=== PATIENT | male | born 1965 | race Caucasian/White ===

== ENCOUNTER 2018-04-14 11:25 | Emergency (ER) | payer MEDICAID, OTHER ==
[~2018-04-14] VITALS: Ht 175.3 cm; Wt 64.0 kg
[~2018-04-14 11:25] MED LIST: CITA20TA75; NICO1PAT15; PANT40TA4; QUET100T; RANI25TA
[2018-04-14 15:11] LABS: CHLORIDE 103 mEq/L (98-107)
[2018-04-14 15:15] LABS: BASOPHILS % 0.6 % (0.0-2.0); EOSINOPHILS % 3.9 % (0.0-5.0); HEMATOCRIT. 39.4 % (42.0-52.0); HEMOGLOBIN. 13.7 g/dL (14.0-18.0); LYMPHOCYTES % 29.5 % (20.0-50.0); MEAN CORPUSCULAR HEMOGLOBIN 32.3 pg (28.0-32.0); MEAN CORPUSCULAR VOLUME 92.8 fL (80.0-94.0); MEAN PLATELET VOLUME 7.6 fl (7.4-10.4); MONOCYTES % 9.6 % (2.0-8.0); NEUTROPHILS % 56.4 % (40.0-76.0); PLATELET 285 x1000/uL (130-400); RED BLOOD CELL COUNT 4.24 mill/uL (4.7-6.1); RED CELL DISTRIBUTION WIDTH 13.7 % (11.6-14.6)
[2018-04-14 15:16] LABS: ETHANOL BLOOD < 10 mg/dL
[2018-04-14 17:17] LABS: CLARITY URINE CLEAR (CLEAR); COLOR URINE YELLOW (YELLOW); KETONES URINE TRACE (NEGATIVE); LEUKOCYTE ESTERASE URINE NEGATIVE (NEGATIVE); NITRITE URINE NEGATIVE (NEGATIVE); OCCULT BLOOD URINE TRACE (NEGATIVE); PH URINE 5.5 (4.5-8.0); PROTEIN URINE NEGATIVE (NEGATIVE); SPECIFIC GRAVITY URINE 1.032 (1.005-1.030); UROBILINOGEN URINE 0.2 E.U./dL (0.2-1.0)
[2018-04-14 17:29] LABS: *AMPHETAMINES SCREEN URINE PRESUMTIVE POSITIVE (NEGATIVE); *BARBITURATES SCREEN URINE NEGATIVE (NEGATIVE); *BENZODIAZEPINES SCREEN URINE NEGATIVE (NEGATIVE); *COCAINE SCREEN URINE NEGATIVE (NEGATIVE); METHADONE URINE SCREEN NEGATIVE (NEGATIVE)
[2018-04-14 17:32] LABS: CANNABINOID URINE SCREEN NEGATIVE (NEGATIVE); OPIATES URINE SCREEN NEGATIVE (NEGATIVE); PHENCYCLIDINE URINE SCREEN NEGATIVE (NEGATIVE)
[2018-04-15 09:20] VITALS: BP 120/67
== END 2018-04-15 09:24 | disposition home or self-care (01) ==
LOC: ER 11:25
DX: R45.851 Suicidal ideations (principal); F20.9 Schizophrenia, unspecified; F15.10 Other stimulant abuse, uncomplicated; R94.5 Abnormal results of liver function studies
CPT/HCPCS: 36415; 80053; 80305; 80307; 80329; 81003; 85025; 99284; G0482

== ENCOUNTER 2018-06-14 11:53 | Inpatient (IN) | payer OTHER ==
[~2018-06-14] VITALS: Ht 175.3 cm; Wt 60.8 kg
[2018-06-14] MEDS ORDERED: SODIUM CHLORIDE 0.9% 1000ML BAG (SEPSIS BOLUS) IV ONE (14:30)
[2018-06-14] MEDS ORDERED: ACYCLOVIR INJ 500 MG in DEXT 5% WATER 100 ML IV STA (14:36)
[2018-06-14] MEDS ORDERED: LORAZEPAM 2MG/ML CPJ IV ONE (14:45)
[2018-06-14 16:11] LABS: BASOPHILS % 0.4 % (0.0-2.0); EOSINOPHILS % 3.5 % (0.0-5.0); HEMATOCRIT. 37.9 % (42.0-52.0); HEMOGLOBIN. 12.9 g/dL (14.0-18.0); MEAN CORPUSCULAR HEMOGLOBIN 31.3 pg (28.0-32.0); MEAN CORPUSCULAR VOLUME 92.2 fL (80.0-94.0); NEUTROPHILS % 69.1 % (40.0-76.0); PLATELET 224 x1000/uL (130-400); RED BLOOD CELL COUNT 4.11 mill/uL (4.7-6.1); RED CELL DISTRIBUTION WIDTH 13.2 % (11.6-14.6)
[2018-06-14 16:12] LABS: CHLORIDE 104 mEq/L (98-107)
[2018-06-14 16:17] LABS: INR 0.9; PROTHROMBIN TIME 9.5 sec (9.1-11.1)
[2018-06-14 18:10] LABS: CLARITY URINE CLEAR (CLEAR); COLOR URINE YELLOW (YELLOW); KETONES URINE NEGATIVE (NEGATIVE); LEUKOCYTE ESTERASE URINE NEGATIVE (NEGATIVE); NITRITE URINE NEGATIVE (NEGATIVE); OCCULT BLOOD URINE 2+ (NEGATIVE); PH URINE 5.5 (4.5-8.0); PROTEIN URINE NEGATIVE (NEGATIVE); SPECIFIC GRAVITY URINE 1.011 (1.005-1.030)
[2018-06-14 18:42] LABS: *AMPHETAMINES SCREEN URINE PRESUMTIVE POSITIVE (NEGATIVE); *BARBITURATES SCREEN URINE NEGATIVE (NEGATIVE); *BENZODIAZEPINES SCREEN URINE NEGATIVE (NEGATIVE); *COCAINE SCREEN URINE NEGATIVE (NEGATIVE); CANNABINOID URINE SCREEN NEGATIVE (NEGATIVE); METHADONE URINE SCREEN NEGATIVE (NEGATIVE); OPIATES URINE SCREEN NEGATIVE (NEGATIVE); PHENCYCLIDINE URINE SCREEN NEGATIVE (NEGATIVE)
[2018-06-14] MEDS ORDERED: HYDROCODONE/ACETAMINOPHEN 5/325MG TABLET PO PRN (19:45)
[2018-06-14] MEDS ORDERED: DOCUSATE SODIUM 100MG CAPSULE PO PRN (19:45)
[2018-06-14] MEDS ORDERED: ONDANSETRON HCL 4MG/2ML INJ IV PRN (19:45)
[2018-06-14] MEDS ORDERED: IPRATROPIUM/ALBUTEROL 0.5-3(2.5)MG/3ML NEB INH PRN (19:45)
[2018-06-14] MEDS ORDERED: MAGNESIUM/ALUMINUM HYDROXIDE/SIMETHICONE 30ML UDC PO PRN (19:45)
[2018-06-14] MEDS ORDERED: CLONIDINE 0.1MG TABLET PO PRN (19:45)
[2018-06-14] MEDS ORDERED: ACETAMINOPHEN 325MG TABLET PO PRN (19:45)
[2018-06-14] MEDS: ENOXAPARIN 40MG/0.4ML SYR SUBCUT SCH (20:47)
[2018-06-14] MEDS ORDERED: LORAZEPAM 0.5MG TABLET PO PRN (21:00)
[2018-06-14 23:55] LABS: CREATINE KINASE 898 IU/L (39-308)
[2018-06-14 23:57] LABS: CREATINE KINASE MB FRACTION 8.3 ng/mL (0.5-3.6)
[2018-06-15] MEDS ORDERED: ACYCLOVIR INJ 500 MG in DEXT 5% WATER 100 ML IV SCH (02:30)
[2018-06-15] MEDS ORDERED: LORAZEPAM 2MG/ML CPJ IV ONE (02:45)
[2018-06-15] MEDS ORDERED: HALOPERIDOL LACTATE 5MG/ML VIAL IM ONE (03:00)
[2018-06-15] MEDS ORDERED: DIPHENHYDRAMINE 50MG/ML VIAL IV ONE (03:00)
[2018-06-15] MEDS: ENOXAPARIN 40MG/0.4ML SYR SUBCUT SCH (21:30)
[2018-06-15] MEDS: ACYCLOVIR INJ 500 MG in DEXT 5% WATER 100 ML IV SCH (23:31)
[2018-06-15 23:47] LABS: BASOPHILS % 0.5 % (0.0-2.0); EOSINOPHILS % 2.5 % (0.0-5.0); HEMATOCRIT. 38.7 % (42.0-52.0); HEMOGLOBIN. 13.2 g/dL (14.0-18.0); LYMPHOCYTES % 19.3 % (20.0-50.0); MEAN CORPUSCULAR HEMOGLOBIN 31.5 pg (28.0-32.0); MEAN CORPUSCULAR VOLUME 92.5 fL (80.0-94.0); MEAN PLATELET VOLUME 7.5 fl (7.4-10.4); MONOCYTES % 8.9 % (2.0-8.0); NEUTROPHILS % 68.8 % (40.0-76.0); PLATELET 231 x1000/uL (130-400); RED BLOOD CELL COUNT 4.18 mill/uL (4.7-6.1); RED CELL DISTRIBUTION WIDTH 13.6 % (11.6-14.6)
[2018-06-15 23:56] LABS: CHLORIDE 108 mEq/L (98-107)
[2018-06-16 00:08] LABS: LDL CHOLESTEROL 54 mg/dL (5-100)
[2018-06-16 00:09] LABS: CREATINE KINASE 296 IU/L (39-308)
[2018-06-16 00:10] LABS: HDL CHOLESTEROL 54 mg/dL (40-59)
[2018-06-16 00:14] LABS: CREATINE KINASE MB FRACTION 2.4 ng/mL (0.5-3.6)
[2018-06-16] MEDS: ACYCLOVIR INJ 500 MG in DEXT 5% WATER 100 ML IV SCH ×3 (06:38→22:37)
[2018-06-16] MEDS: ENOXAPARIN 40MG/0.4ML SYR SUBCUT SCH (21:59)
[2018-06-17] MEDS: ACYCLOVIR INJ 500 MG in DEXT 5% WATER 100 ML IV SCH ×2 (06:51→16:29)
[2018-06-17] MEDS ORDERED: CEFTRIAXONE 1 G PREMIX 50 ML IV SCH (09:00)
[2018-06-17 09:06] LABS: HIV SCREEN 4G Non Reactive (Non Reactive)
[2018-06-17 12:00] VITALS: BP 127/86
[2018-06-17 13:32] VITALS: BP 127/86
[2018-06-17] MEDS ORDERED: ACYCLOVIR INJ 500 MG in DEXT 5% WATER 100 ML IV SCH (15:00)
[2018-06-17 16:00] VITALS: BP 110/77
[2018-06-17] MEDS: PANTOPRAZOLE 40MG DR TABLET PO SCH (19:51)
[2018-06-17] MEDS: FOLIC ACID 1MG TABLET PO SCH (19:51)
[2018-06-17] MEDS: THIAMINE HCL 100MG TABLET PO SCH (19:51)
[2018-06-17 20:00] VITALS: BP 103/76
[2018-06-17] MEDS ORDERED: QUETIAPINE FUMARATE 100MG TABLET PO NR (20:15)
[2018-06-17] MEDS ORDERED: QUETIAPINE FUMARATE 100MG TABLET PO SCH (21:00)
[2018-06-17] MEDS: CITALOPRAM HYDROBROMIDE 20MG TABLET PO SCH (21:29)
[2018-06-17] MEDS: ENOXAPARIN 40MG/0.4ML SYR SUBCUT SCH (21:31)
[2018-06-18] VITALS: BP 110/71
[2018-06-18] MEDS: ACYCLOVIR INJ 500 MG in DEXT 5% WATER 100 ML IV SCH ×4 (00:48→23:51)
[2018-06-18 04:00] VITALS: BP 109/69
[2018-06-18 06:33] LABS: BASOPHILS % 0.6 % (0.0-2.0); EOSINOPHILS % 4.2 % (0.0-5.0); HEMATOCRIT. 42.2 % (42.0-52.0); HEMOGLOBIN. 14.2 g/dL (14.0-18.0); LYMPHOCYTES % 28.6 % (20.0-50.0); MEAN CORPUSCULAR HEMOGLOBIN 31.3 pg (28.0-32.0); MEAN PLATELET VOLUME 7.3 fl (7.4-10.4); MONOCYTES % 11.3 % (2.0-8.0); NEUTROPHILS % 55.3 % (40.0-76.0); PLATELET 300 x1000/uL (130-400); RED BLOOD CELL COUNT 4.53 mill/uL (4.7-6.1); RED CELL DISTRIBUTION WIDTH 13.7 % (11.6-14.6)
[2018-06-18 06:45] LABS: CHLORIDE 108 mEq/L (98-107)
[2018-06-18 08:00] VITALS: BP 126/83
[2018-06-18] MEDS: PANTOPRAZOLE 40MG DR TABLET PO SCH (08:09)
[2018-06-18] MEDS ORDERED: CEFTRIAXONE 1 G PREMIX 50 ML IV SCH (09:00)
[2018-06-18 12:00] VITALS: BP 107/68
[2018-06-18] MEDS: CITALOPRAM HYDROBROMIDE 20MG TABLET PO SCH (12:21)
[2018-06-18] MEDS: FOLIC ACID 1MG TABLET PO SCH (12:21)
[2018-06-18] MEDS: CEFAZOLIN 1000MG PREMIX 50 ML IV SCH ×2 (12:21→16:30)
[2018-06-18] MEDS: THIAMINE HCL 100MG TABLET PO SCH (12:21)
[2018-06-18 16:00] VITALS: BP 114/75
[2018-06-18 21:00] VITALS: BP 103/71
[2018-06-18] MEDS: QUETIAPINE FUMARATE 100MG TABLET PO SCH (23:51)
[2018-06-18] MEDS: ENOXAPARIN 40MG/0.4ML SYR SUBCUT SCH (23:53)
[2018-06-19] VITALS: BP 101/61
[2018-06-19] MEDS: CEFAZOLIN 1000MG PREMIX 50 ML IV SCH ×3 (00:02→23:10)
[2018-06-19 04:16] LABS: *HSV 1 DNA PCR Negative (Negative); *HSV 2 DNA PCR Negative (Negative); HSV 1 & 2 AB IGM <0.91 Ratio (0.00-0.90)
[2018-06-19 05:00] VITALS: BP 101/64
[2018-06-19] MEDS: PANTOPRAZOLE 40MG DR TABLET PO SCH ×2 (06:43→08:42)
[2018-06-19 06:59] LABS: BASOPHILS % 0.8 % (0.0-2.0); EOSINOPHILS % 4.5 % (0.0-5.0); HEMATOCRIT. 41.8 % (42.0-52.0); HEMOGLOBIN. 13.9 g/dL (14.0-18.0); LYMPHOCYTES % 37.5 % (20.0-50.0); MEAN CORPUSCULAR HEMOGLOBIN 31.1 pg (28.0-32.0); MEAN CORPUSCULAR VOLUME 93.7 fL (80.0-94.0); MEAN PLATELET VOLUME 7.4 fl (7.4-10.4); NEUTROPHILS % 47.2 % (40.0-76.0); PLATELET 323 x1000/uL (130-400); RED BLOOD CELL COUNT 4.46 mill/uL (4.7-6.1); RED CELL DISTRIBUTION WIDTH 14.2 % (11.6-14.6)
[2018-06-19 07:21] LABS: CHLORIDE 105 mEq/L (98-107)
[2018-06-19 07:32] LABS: CREATINE KINASE 53 IU/L (39-308)
[2018-06-19 08:00] VITALS: BP 93/55
[2018-06-19] MEDS: THIAMINE HCL 100MG TABLET PO SCH (08:42)
[2018-06-19] MEDS: CITALOPRAM HYDROBROMIDE 20MG TABLET PO SCH (08:42)
[2018-06-19] MEDS: FOLIC ACID 1MG TABLET PO SCH (08:42)
[2018-06-19] MEDS: ACYCLOVIR INJ 500 MG in DEXT 5% WATER 100 ML IV SCH ×2 (08:43→17:23)
[2018-06-19 10:08] LABS: HIV SCREEN 4G Non Reactive (Non Reactive)
[2018-06-19 16:00] VITALS: BP 108/69
[2018-06-19 20:00] VITALS: BP 100/63
[2018-06-19] MEDS: QUETIAPINE FUMARATE 100MG TABLET PO SCH (23:10)
[2018-06-19] MEDS: ENOXAPARIN 40MG/0.4ML SYR SUBCUT SCH (23:11)
[2018-06-20] VITALS: BP 102/62
[2018-06-20] MEDS: CEFAZOLIN 1000MG PREMIX 50 ML IV SCH (05:24)
[2018-06-20 08:00] VITALS: BP 105/69
[2018-06-20] MEDS: THIAMINE HCL 100MG TABLET PO SCH (09:00)
[2018-06-20] MEDS: CITALOPRAM HYDROBROMIDE 20MG TABLET PO SCH (09:00)
[2018-06-20] MEDS: FOLIC ACID 1MG TABLET PO SCH (09:00)
[2018-06-20] MEDS ORDERED: FAMOTIDINE 20MG TABLET PO SCH (09:00)
[2018-06-20 12:00] VITALS: BP 98/61
== END 2018-06-20 12:40 | disposition left against medical advice (07) | DRG 720 ==
LOC: ER 12:02 → EDBEDREQSVC 17:20 → EDBEDREQ 17:20 → ENRESERV 17:28 → CANRESERV 17:28 → 6EST 06-16 17:15 → ENRESERV 06-17 09:55 → CANRESERV 06-17 09:55
PROVIDERS: ADMIT Internal Medicine; ATTEND Internal Medicine
DX: B00.7 Disseminated herpesviral disease (principal); R45.851 Suicidal ideations; F20.9 Schizophrenia, unspecified; D72.829 Elevated white blood cell count, unspecified; F10.20 Alcohol dependence, uncomplicated; N39.0 Urinary tract infection, site not specified; F15.90 Other stimulant use, unspecified, uncomplicated; F19.10 Other psychoactive substance abuse, uncomplicated; B96.20 Unspecified Escherichia coli [E. coli] as the cause of diseases classified elsewhere; F31.9 Bipolar disorder, unspecified; Z53.21 Procedure and treatment not carried out due to patient leaving prior to being seen by health care provider; Z59.0 Homelessness; Z79.899 Other long term (current) drug therapy; Z86.73 Personal history of transient ischemic attack (TIA), and cerebral infarction without residual deficits
CPT/HCPCS: 36415; 71045; 80048; 80061; 80305; 82550; 82553; 83605; 83735; 84145; 84443; 84484; 86592; 86694; 86695; 87077; 87186; 87389; 87529; 93005; 93970; 96361; 96365; 96366; 96372; 96375; 96376; 97162; 99285; J0133; J0690; J0696; J1200; J1630; J1650; J2060; J7030; J7040; J7060

== ENCOUNTER 2018-06-24 16:29 | Emergency (ER) | payer MEDICAID, OTHER ==
[~2018-06-24] VITALS: Ht 182.9 cm; Wt 70.0 kg
[2018-06-24] MEDS ORDERED: ACETAMINOPHEN 325MG TABLET PO ONE (21:15)
[2018-06-24] MEDS ORDERED: DIAZEPAM 2 MG TABLET PO ONE (22:30)
[2018-06-24] MEDS ORDERED: KETOROLAC 60MG/2ML VIAL IM ONE (22:30)
[2018-06-25] MEDS ORDERED: HYDROCODONE/ACETAMINOPHEN 10/325MG TABLET PO ONE (02:45)
[2018-06-25] MEDS ORDERED: LORAZEPAM 2MG/ML CPJ IM STA (07:48)
[2018-06-25 08:22] LABS: BASOPHILS % 0.4 % (0.0-2.0); EOSINOPHILS % 2.8 % (0.0-5.0); HEMATOCRIT. 38.1 % (42.0-52.0); HEMOGLOBIN. 12.9 g/dL (14.0-18.0); LYMPHOCYTES % 28.5 % (20.0-50.0); MEAN CORPUSCULAR HEMOGLOBIN 31.5 pg (28.0-32.0); MEAN CORPUSCULAR VOLUME 93.2 fL (80.0-94.0); MEAN PLATELET VOLUME 6.7 fl (7.4-10.4); NEUTROPHILS % 57.3 % (40.0-76.0); PLATELET 405 x1000/uL (130-400); RED BLOOD CELL COUNT 4.08 mill/uL (4.7-6.1); RED CELL DISTRIBUTION WIDTH 13.6 % (11.6-14.6)
[2018-06-25 08:29] LABS: CHLORIDE 103 mEq/L (98-107)
[2018-06-25 08:33] LABS: ETHANOL BLOOD < 10 mg/dL
[2018-06-25 08:38] LABS: CREATINE KINASE 709 IU/L (39-308)
[2018-06-25] MEDS ORDERED: SODIUM CHLORIDE 0.9% 1,000 ML IV ONE (08:47)
[2018-06-25 12:00] VITALS: BP 101/63
== END 2018-06-25 12:42 | disposition short-term general hospital (02) ==
LOC: ER 16:29 → EDBEDREQ 06-25 09:30 → ER 06-25 12:42 → CANBEDREQ 06-25 20:45
DX: M79.604 Pain in right leg (principal); F20.9 Schizophrenia, unspecified; F15.10 Other stimulant abuse, uncomplicated; Z59.0 Homelessness; Z86.73 Personal history of transient ischemic attack (TIA), and cerebral infarction without residual deficits
CPT/HCPCS: 36415; 70450; 73502; 73590; 80053; 80307; 80329; 82140; 82550; 85025; 93971; 96372; 99285; G0482; J1885; J2060; J7030

== ENCOUNTER 2018-07-12 09:36 | Emergency (ER) | payer OTHER ==
[~2018-07-12] VITALS: Ht 175.3 cm; Wt 71.0 kg
[2018-07-12 15:13] LABS: CLARITY URINE CLOUDY (CLEAR); COLOR URINE DARK YELLOW (YELLOW); KETONES URINE TRACE (NEGATIVE); LEUKOCYTE ESTERASE URINE NEGATIVE (NEGATIVE); NITRITE URINE NEGATIVE (NEGATIVE); OCCULT BLOOD URINE 2+ (NEGATIVE); PH URINE 5.5 (4.5-8.0); PROTEIN URINE NEGATIVE (NEGATIVE)
[2018-07-12 15:30] LABS: *AMPHETAMINES SCREEN URINE PRESUMTIVE POSITIVE (NEGATIVE); *BARBITURATES SCREEN URINE NEGATIVE (NEGATIVE); *BENZODIAZEPINES SCREEN URINE NEGATIVE (NEGATIVE); *COCAINE SCREEN URINE NEGATIVE (NEGATIVE); BASOPHILS % 0.2 % (0.0-2.0); EOSINOPHILS % 4.5 % (0.0-5.0); HEMATOCRIT. 38.3 % (42.0-52.0); HEMOGLOBIN. 12.8 g/dL (14.0-18.0); LYMPHOCYTES % 32.7 % (20.0-50.0); MEAN CORPUSCULAR HEMOGLOBIN 31.8 pg (28.0-32.0); MEAN CORPUSCULAR VOLUME 94.9 fL (80.0-94.0); MEAN PLATELET VOLUME 7.8 fl (7.4-10.4); METHADONE URINE SCREEN NEGATIVE (NEGATIVE); NEUTROPHILS % 52.6 % (40.0-76.0); OPIATES URINE SCREEN NEGATIVE (NEGATIVE); PLATELET 212 x1000/uL (130-400); RED BLOOD CELL COUNT 4.04 mill/uL (4.7-6.1); RED CELL DISTRIBUTION WIDTH 14.5 % (11.6-14.6)
[2018-07-12 15:31] LABS: CANNABINOID URINE SCREEN NEGATIVE (NEGATIVE); PHENCYCLIDINE URINE SCREEN NEGATIVE (NEGATIVE)
[2018-07-12 15:34] LABS: CHLORIDE 107 mEq/L (98-107)
[2018-07-12 15:39] LABS: ETHANOL BLOOD < 10 mg/dL
[2018-07-12] MEDS ORDERED: ACETAMINOPHEN 325MG TABLET PO ONE (16:00)
[2018-07-13 11:49] VITALS: BP 132/72
== END 2018-07-13 12:00 | disposition home or self-care (01) ==
LOC: ER 09:36
DX: R45.851 Suicidal ideations (principal); F31.9 Bipolar disorder, unspecified; F20.9 Schizophrenia, unspecified; M79.643 Pain in unspecified hand; M79.673 Pain in unspecified foot; F10.10 Alcohol abuse, uncomplicated; F15.10 Other stimulant abuse, uncomplicated; F17.200 Nicotine dependence, unspecified, uncomplicated; Z86.73 Personal history of transient ischemic attack (TIA), and cerebral infarction without residual deficits; Z79.899 Other long term (current) drug therapy; Z59.0 Homelessness; Y90.0 Blood alcohol level of less than 20 mg/100 ml
CPT/HCPCS: 36415; 80305; 99284

== ENCOUNTER 2018-07-30 10:58 | Emergency (ER) | payer MEDICAID, OTHER ==
[~2018-07-30] VITALS: Ht 177.8 cm; Wt 80.0 kg
[2018-07-30] MEDS ORDERED: IBUPROFEN 600MG TABLET PO STA ×2 (11:25→17:09)
[2018-07-30 12:12] LABS: BASOPHILS % 0.9 % (0.0-2.0); EOSINOPHILS % 6.6 % (0.0-5.0); HEMATOCRIT. 36.8 % (42.0-52.0); HEMOGLOBIN. 12.6 g/dL (14.0-18.0); LYMPHOCYTES % 30.2 % (20.0-50.0); MEAN CORPUSCULAR HEMOGLOBIN 32.3 pg (28.0-32.0); MEAN CORPUSCULAR VOLUME 94.3 fL (80.0-94.0); MEAN PLATELET VOLUME 7.2 fl (7.4-10.4); NEUTROPHILS % 50.3 % (40.0-76.0); PLATELET 290 x1000/uL (130-400); RED BLOOD CELL COUNT 3.91 mill/uL (4.7-6.1); RED CELL DISTRIBUTION WIDTH 14.5 % (11.6-14.6)
[2018-07-30 12:20] LABS: CHLORIDE 108 mEq/L (98-107)
[2018-07-30 12:24] LABS: ETHANOL BLOOD < 10 mg/dL
[2018-07-30 12:28] LABS: CREATINE KINASE 331 IU/L (39-308)
[2018-07-30 16:22] LABS: CLARITY URINE CLEAR (CLEAR); KETONES URINE NEGATIVE (NEGATIVE); LEUKOCYTE ESTERASE URINE NEGATIVE (NEGATIVE); NITRITE URINE NEGATIVE (NEGATIVE); OCCULT BLOOD URINE 2+ (NEGATIVE); PROTEIN URINE NEGATIVE (NEGATIVE); SPECIFIC GRAVITY URINE 1.031 (1.005-1.030)
[2018-07-30 16:25] LABS: COLOR URINE DARK YELLOW (YELLOW)
[2018-07-30 16:41] LABS: *BARBITURATES SCREEN URINE NEGATIVE (NEGATIVE)
[2018-07-30 16:42] LABS: *AMPHETAMINES SCREEN URINE PRESUMTIVE POSITIVE (NEGATIVE); *BENZODIAZEPINES SCREEN URINE NEGATIVE (NEGATIVE); *COCAINE SCREEN URINE NEGATIVE (NEGATIVE); METHADONE URINE SCREEN NEGATIVE (NEGATIVE); OPIATES URINE SCREEN NEGATIVE (NEGATIVE); PHENCYCLIDINE URINE SCREEN NEGATIVE (NEGATIVE)
[2018-07-30 16:43] LABS: CANNABINOID URINE SCREEN NEGATIVE (NEGATIVE)
[2018-07-30] MEDS ORDERED: LORAZEPAM 2MG/ML CPJ IM ONE (18:30)
[2018-07-31 05:35] VITALS: BP 128/79
== END 2018-07-31 10:09 ==
LOC: ER 10:58
DX: F15.129 Other stimulant abuse with intoxication, unspecified (principal); F11.129 Opioid abuse with intoxication, unspecified; F20.9 Schizophrenia, unspecified; R45.851 Suicidal ideations; M54.2 Cervicalgia; Z91.81 History of falling; Z59.0 Homelessness; Z86.73 Personal history of transient ischemic attack (TIA), and cerebral infarction without residual deficits
CPT/HCPCS: 36415; 70450; 72125; 80053; 80305; 80307; 80329; 81003; 82550; 85025; 96372; 99285; J2060

== ENCOUNTER 2018-10-19 08:37 | Emergency (ER) | payer MEDICAID, OTHER ==
[~2018-10-19] VITALS: Ht 170.2 cm; Wt 82.0 kg
[2018-10-19] MEDS ORDERED: ALBUTEROL (0.083%) 2.5MG/3ML NEB HHN STA ×2 (09:08→11:46)
[2018-10-19] MEDS ORDERED: METHYLPREDNISOLONE SOD SUCC 125 MG/2 ML VIAL IV STA (09:08)
[2018-10-19] MEDS ORDERED: IPRATROPIUM BROMIDE (0.02%) 0.5MG/2.5ML NEB HHN STA (09:08)
[2018-10-19] MEDS ORDERED: ASPIRIN 81MG TABLET PO ONE (09:15)
[2018-10-19] MEDS ORDERED: IPRATROPIUM/ALBUTEROL 0.5-3(2.5)MG/3ML NEB ONE (09:18)
[2018-10-19 09:35] LABS: CHLORIDE 105 mEq/L (98-107)
[2018-10-19 09:36] LABS: BASOPHILS % 0.5 % (0.0-2.0); EOSINOPHILS % 1.8 % (0.0-5.0); HEMATOCRIT. 47.4 % (42.0-52.0); HEMOGLOBIN. 15.8 g/dL (14.0-18.0); LYMPHOCYTES % 30.1 % (20.0-50.0); MEAN CORPUSCULAR HEMOGLOBIN 31.8 pg (28.0-32.0); MEAN PLATELET VOLUME 7.2 fl (7.4-10.4); MONOCYTES % 8.4 % (2.0-8.0); NEUTROPHILS % 59.2 % (40.0-76.0); PLATELET 386 x1000/uL (130-400); RED BLOOD CELL COUNT 4.99 mill/uL (4.7-6.1); RED CELL DISTRIBUTION WIDTH 13.1 % (11.6-14.6)
[2018-10-19 09:37] LABS: PARTIAL THROMBOPLASTIN TIME 27.3 sec (23.4-31.0); PROTHROMBIN TIME 9.9 sec (9.6-11.0)
[2018-10-19 09:40] LABS: ETHANOL BLOOD < 10 mg/dL
[2018-10-19] MEDS ORDERED: ALBUTEROL (0.083%) 2.5MG/3ML NEB ONE (11:52)
[2018-10-19 14:25] LABS: CLARITY URINE CLEAR (CLEAR); COLOR URINE YELLOW (YELLOW); KETONES URINE TRACE (NEGATIVE); LEUKOCYTE ESTERASE URINE NEGATIVE (NEGATIVE); NITRITE URINE NEGATIVE (NEGATIVE); OCCULT BLOOD URINE TRACE (NEGATIVE); PH URINE 5.5 (4.5-8.0); PROTEIN URINE NEGATIVE (NEGATIVE); UROBILINOGEN URINE 0.2 E.U./dL (0.2-1.0)
[2018-10-19 15:13] LABS: *AMPHETAMINES SCREEN URINE NEGATIVE (NEGATIVE); *BARBITURATES SCREEN URINE NEGATIVE (NEGATIVE); *BENZODIAZEPINES SCREEN URINE NEGATIVE (NEGATIVE); METHADONE URINE SCREEN NEGATIVE (NEGATIVE)
[2018-10-19 15:14] LABS: *COCAINE SCREEN URINE NEGATIVE (NEGATIVE); CANNABINOID URINE SCREEN NEGATIVE (NEGATIVE); OPIATES URINE SCREEN NEGATIVE (NEGATIVE); PHENCYCLIDINE URINE SCREEN NEGATIVE (NEGATIVE)
[2018-10-20 10:42] VITALS: BP 110/64
== END 2018-10-20 11:15 | disposition home or self-care (01) ==
LOC: ER 08:44
DX: J44.1 Chronic obstructive pulmonary disease with (acute) exacerbation (principal); R45.851 Suicidal ideations; R44.0 Auditory hallucinations; F17.210 Nicotine dependence, cigarettes, uncomplicated; F15.10 Other stimulant abuse, uncomplicated
CPT/HCPCS: 36415; 71045; 80053; 80305; 80307; 80320; 80329; 81003; 83880; 84484; 85025; 85610; 85730; 93005; 94640; 96374; 99284; J2930; J7611; J7620; G0480

== ENCOUNTER 2019-04-08 19:28 | Emergency (ER) | payer OTHER ==
[~2019-04-08] VITALS: Ht 175.3 cm; Wt 81.0 kg
[2019-04-08 22:25] VITALS: BP 128/70
== END 2019-04-08 23:20 | disposition home or self-care (01) ==
LOC: ER 19:28
DX: F31.9 Bipolar disorder, unspecified (principal); F20.9 Schizophrenia, unspecified; J45.909 Unspecified asthma, uncomplicated; Z59.0 Homelessness
CPT/HCPCS: 99284

== ENCOUNTER 2019-05-13 16:16 | Emergency (ER) | payer MEDICAID, OTHER ==
[~2019-05-13] VITALS: Ht 175.3 cm; Wt 73.0 kg
[2019-05-13] MEDS ORDERED: LORAZEPAM 1MG TABLET PO ONE (16:45)
[2019-05-13] MEDS ORDERED: OLANZAPINE 5MG TABLET ODT PO ONE (16:45)
[2019-05-13 17:12] LABS: BASOPHILS % 0.7 % (0.0-2.0); EOSINOPHILS % 1.5 % (0.0-5.0); HEMATOCRIT. 43.3 % (42.0-52.0); MEAN CORPUSCULAR HEMOGLOBIN 33.3 pg (28.0-32.0); MEAN CORPUSCULAR VOLUME 96.1 fL (80.0-94.0); MEAN PLATELET VOLUME 7.6 fl (7.4-10.4); MONOCYTES % 12.5 % (2.0-8.0); NEUTROPHILS % 54.3 % (40.0-76.0); PLATELET 289 x1000/uL (130-400); RED CELL DISTRIBUTION WIDTH 13.1 % (11.6-14.6)
[2019-05-13 17:17] LABS: CHLORIDE 104 mEq/L (98-107)
[2019-05-13 17:21] LABS: ETHANOL BLOOD 35 mg/dL
[2019-05-13 17:44] LABS: CLARITY URINE CLEAR (CLEAR); COLOR URINE YELLOW (YELLOW); KETONES URINE NEGATIVE (NEGATIVE); LEUKOCYTE ESTERASE URINE TRACE (NEGATIVE); NITRITE URINE NEGATIVE (NEGATIVE); OCCULT BLOOD URINE 2+ (NEGATIVE); PROTEIN URINE NEGATIVE (NEGATIVE)
[2019-05-13 17:54] LABS: *BARBITURATES SCREEN URINE NEGATIVE (NEGATIVE); *BENZODIAZEPINES SCREEN URINE NEGATIVE (NEGATIVE); *COCAINE SCREEN URINE PRESUMTIVE POSITIVE (NEGATIVE); METHADONE URINE SCREEN NEGATIVE (NEGATIVE); OPIATES URINE SCREEN NEGATIVE (NEGATIVE); PHENCYCLIDINE URINE SCREEN NEGATIVE (NEGATIVE)
[2019-05-13 17:55] LABS: *AMPHETAMINES SCREEN URINE NEGATIVE (NEGATIVE); CANNABINOID URINE SCREEN NEGATIVE (NEGATIVE)
[2019-05-13] MEDS ORDERED: ACETAMINOPHEN 500MG TABLET PO ONE (23:00)
[2019-05-14 18:35] VITALS: BP 132/84
== END 2019-05-14 18:59 ==
LOC: ER 16:16
DX: F14.129 Cocaine abuse with intoxication, unspecified (principal); F10.129 Alcohol abuse with intoxication, unspecified; R45.851 Suicidal ideations; F20.9 Schizophrenia, unspecified; F31.9 Bipolar disorder, unspecified; F17.210 Nicotine dependence, cigarettes, uncomplicated; F12.10 Cannabis abuse, uncomplicated; J45.909 Unspecified asthma, uncomplicated; Y90.1 Blood alcohol level of 20-39 mg/100 ml
CPT/HCPCS: 36415; 80305; 80307; 80320; 80329; 81003; 99284; G0480

== ENCOUNTER 2019-05-30 03:21 | Emergency (ER) | payer MEDICAID ==
[~2019-05-30] VITALS: Ht 175.3 cm; Wt 74.0 kg
[2019-05-30 08:34] LABS: BASOPHILS % 0.8 % (0.0-2.0); EOSINOPHILS % 0.9 % (0.0-5.0); HEMATOCRIT. 43.6 % (42.0-52.0); LYMPHOCYTES % 22.1 % (20.0-50.0); MEAN CORPUSCULAR HEMOGLOBIN 32.5 pg (28.0-32.0); MEAN CORPUSCULAR VOLUME 94.7 fL (80.0-94.0); MEAN PLATELET VOLUME 7.3 fl (7.4-10.4); MONOCYTES % 11.8 % (2.0-8.0); NEUTROPHILS % 64.4 % (40.0-76.0); PLATELET 253 x1000/uL (130-400); RED CELL DISTRIBUTION WIDTH 13.1 % (11.6-14.6)
[2019-05-30 08:41] LABS: CHLORIDE 104 mEq/L (98-107)
[2019-05-30 08:47] LABS: ETHANOL BLOOD < 10 mg/dL
[2019-05-30 09:56] LABS: CLARITY URINE CLOUDY (CLEAR); COLOR URINE DARK YELLOW (YELLOW); KETONES URINE 1+ (NEGATIVE); LEUKOCYTE ESTERASE URINE NEGATIVE (NEGATIVE); NITRITE URINE NEGATIVE (NEGATIVE); OCCULT BLOOD URINE 3+ (NEGATIVE); PROTEIN URINE TRACE (NEGATIVE); SPECIFIC GRAVITY URINE 1.028 (1.005-1.030)
[2019-05-30 10:20] LABS: *BARBITURATES SCREEN URINE NEGATIVE (NEGATIVE); CANNABINOID URINE SCREEN NEGATIVE (NEGATIVE); PHENCYCLIDINE URINE SCREEN NEGATIVE (NEGATIVE)
[2019-05-30 10:22] LABS: *AMPHETAMINES SCREEN URINE PRESUMTIVE POSITIVE (NEGATIVE); *BENZODIAZEPINES SCREEN URINE NEGATIVE (NEGATIVE); *COCAINE SCREEN URINE NEGATIVE (NEGATIVE); METHADONE URINE SCREEN NEGATIVE (NEGATIVE); OPIATES URINE SCREEN NEGATIVE (NEGATIVE)
[2019-05-30] MEDS ORDERED: LORAZEPAM 1MG TABLET PO ONE (13:00)
[2019-05-30 14:10] VITALS: BP 127/72
== END 2019-05-30 14:57 | disposition home or self-care (01) ==
LOC: ER 03:21
DX: R45.851 Suicidal ideations (principal); F17.290 Nicotine dependence, other tobacco product, uncomplicated; F12.10 Cannabis abuse, uncomplicated; F41.9 Anxiety disorder, unspecified; F31.9 Bipolar disorder, unspecified; Z79.899 Other long term (current) drug therapy
CPT/HCPCS: 36415; 80053; 80305; 80307; 80320; 80329; 81003; 85025; 99284; 99406; Z7610; G0480

== ENCOUNTER 2019-08-31 17:14 | Emergency (ER) | payer MEDICAID ==
[~2019-08-31] VITALS: Ht 175.3 cm; Wt 61.0 kg
[2019-08-31] MEDS ORDERED: QUET300T2 PO (17:28)
[2019-08-31 18:18] LABS: BASOPHILS % 0.5 % (0.0-2.0); EOSINOPHILS % 3.3 % (0.0-5.0); HEMATOCRIT. 43.3 % (42.0-52.0); HEMOGLOBIN. 15.1 g/dL (14.0-18.0); LYMPHOCYTES % 28.9 % (20.0-50.0); MEAN CORPUSCULAR HEMOGLOBIN 33.2 pg (28.0-32.0); MEAN CORPUSCULAR VOLUME 95.2 fL (80.0-94.0); MEAN PLATELET VOLUME 7.4 fl (7.4-10.4); MONOCYTES % 12.1 % (2.0-8.0); NEUTROPHILS % 55.2 % (40.0-76.0); PLATELET 254 x1000/uL (130-400); RED BLOOD CELL COUNT 4.55 mill/uL (4.7-6.1); RED CELL DISTRIBUTION WIDTH 13.1 % (11.6-14.6)
[2019-08-31 18:21] LABS: CLARITY URINE CLEAR (CLEAR); COLOR URINE YELLOW (YELLOW); KETONES URINE NEGATIVE (NEGATIVE); LEUKOCYTE ESTERASE URINE NEGATIVE (NEGATIVE); NITRITE URINE NEGATIVE (NEGATIVE); OCCULT BLOOD URINE TRACE (NEGATIVE); PH URINE 5.5 (4.5-8.0); PROTEIN URINE NEGATIVE (NEGATIVE); SPECIFIC GRAVITY URINE 1.028 (1.005-1.030); UROBILINOGEN URINE 0.2 E.U./dL (0.2-1.0)
[2019-08-31 18:25] LABS: CHLORIDE 107 mEq/L (98-107)
[2019-08-31 18:29] LABS: ETHANOL BLOOD < 10 mg/dL
[2019-08-31 18:35] LABS: *AMPHETAMINES SCREEN URINE NEGATIVE (NEGATIVE); *BARBITURATES SCREEN URINE NEGATIVE (NEGATIVE); *BENZODIAZEPINES SCREEN URINE PRESUMTIVE POSITIVE (NEGATIVE); *COCAINE SCREEN URINE NEGATIVE (NEGATIVE)
[2019-08-31 18:36] LABS: CANNABINOID URINE SCREEN NEGATIVE (NEGATIVE); METHADONE URINE SCREEN NEGATIVE (NEGATIVE); OPIATES URINE SCREEN NEGATIVE (NEGATIVE); PHENCYCLIDINE URINE SCREEN NEGATIVE (NEGATIVE)
[2019-08-31] MEDS ORDERED: VISCOUS LIDOCAINE 2% 15 ML UDC PO STA (18:37)
[2019-08-31] MEDS ORDERED: MAGNESIUM/ALUMINUM HYDROXIDE/SIMETHICONE 30ML UDC PO STA (18:37)
[2019-08-31] MEDS ORDERED: FAMOTIDINE 20MG/2ML VIAL IV ONE (18:45)
[2019-08-31] MEDS ORDERED: FAMOTIDINE 20MG TABLET PO ONE (18:45)
[2019-09-01 10:00] VITALS: BP 116/66
== END 2019-09-01 10:02 | disposition home or self-care (01) ==
LOC: ER 17:14
DX: R45.851 Suicidal ideations (principal); F31.9 Bipolar disorder, unspecified; R10.13 Epigastric pain; F13.10 Sedative, hypnotic or anxiolytic abuse, uncomplicated; J45.909 Unspecified asthma, uncomplicated; F17.210 Nicotine dependence, cigarettes, uncomplicated; Z75.1 Person awaiting admission to adequate facility elsewhere
CPT/HCPCS: 36415; 71045; 80053; 80305; 80307; 80320; 80329; 81003; 84484; 85025; 93005; 99285; G0480

== ENCOUNTER 2019-09-09 13:30 | Emergency (ER) | payer MEDICAID, OTHER ==
[~2019-09-09] VITALS: Ht 172.7 cm; Wt 75.0 kg
[~2019-09-09 13:30] MED LIST changes: -NICO1PAT15; +QUET300T2 PO
[2019-09-09 13:45] VITALS: BP 100/70
[2019-09-09] MEDS ORDERED: LORAZEPAM 1MG TABLET PO ONE (16:45)
[2019-09-09] MEDS ORDERED: OLANZAPINE 5MG TABLET ODT PO ONE (16:45)
[2019-09-09 17:27] LABS: CLARITY URINE CLEAR (CLEAR); COLOR URINE YELLOW (YELLOW); KETONES URINE NEGATIVE (NEGATIVE); LEUKOCYTE ESTERASE URINE NEGATIVE (NEGATIVE); NITRITE URINE NEGATIVE (NEGATIVE); OCCULT BLOOD URINE 1+ (NEGATIVE); PROTEIN URINE NEGATIVE (NEGATIVE); SPECIFIC GRAVITY URINE 1.029 (1.005-1.030)
[2019-09-09 17:41] LABS: *AMPHETAMINES SCREEN URINE NEGATIVE (NEGATIVE); *BARBITURATES SCREEN URINE NEGATIVE (NEGATIVE); *BENZODIAZEPINES SCREEN URINE NEGATIVE (NEGATIVE); *COCAINE SCREEN URINE NEGATIVE (NEGATIVE); METHADONE URINE SCREEN NEGATIVE (NEGATIVE)
[2019-09-09 17:42] LABS: CANNABINOID URINE SCREEN NEGATIVE (NEGATIVE); OPIATES URINE SCREEN NEGATIVE (NEGATIVE); PHENCYCLIDINE URINE SCREEN NEGATIVE (NEGATIVE)
== END 2019-09-09 17:46 | disposition left against medical advice (07) ==
LOC: ER 13:30
DX: F31.9 Bipolar disorder, unspecified (principal); R45.851 Suicidal ideations; Z59.0 Homelessness
CPT/HCPCS: 80305; 81003; 99283

== ENCOUNTER 2020-01-19 18:13 | Emergency (ER) | payer OTHER ==
[~2020-01-19] VITALS: Ht 175.3 cm; Wt 84.0 kg
[2020-01-19] MEDS ORDERED: SODIUM CHLORIDE 0.9% 1,000 ML IV ONE (19:23)
[2020-01-19] MEDS ORDERED: KETOROLAC 30MG/ML VIAL IV STA (19:23)
[2020-01-19 19:43] LABS: BASOPHILS % 0.6 % (0.0-2.0); EOSINOPHILS % 2.9 % (0.0-5.0); HEMATOCRIT. 44.8 % (42.0-52.0); HEMOGLOBIN. 15.4 g/dL (14.0-18.0); LYMPHOCYTES % 25.2 % (20.0-50.0); MEAN CORPUSCULAR HEMOGLOBIN 33.4 pg (28.0-32.0); MEAN CORPUSCULAR VOLUME 97.5 fL (80.0-94.0); MEAN PLATELET VOLUME 8.2 fl (7.4-10.4); MONOCYTES % 9.1 % (2.0-8.0); NEUTROPHILS % 62.2 % (40.0-76.0); PLATELET 196 x1000/uL (130-400); RED CELL DISTRIBUTION WIDTH 13.2 % (11.6-14.6)
[2020-01-19 19:50] LABS: CHLORIDE 109 mEq/L (98-107)
[2020-01-19 22:00] LABS: CLARITY URINE CLEAR (CLEAR); COLOR URINE YELLOW (YELLOW); KETONES URINE TRACE (NEGATIVE); LEUKOCYTE ESTERASE URINE NEGATIVE (NEGATIVE); NITRITE URINE NEGATIVE (NEGATIVE); OCCULT BLOOD URINE NEGATIVE (NEGATIVE); PROTEIN URINE NEGATIVE (NEGATIVE); SPECIFIC GRAVITY URINE 1.033 (1.005-1.030)
[2020-01-20] MEDS ORDERED: IBUPROFEN 600MG TABLET PO NR (00:15)
[2020-01-20 00:23] LABS: ETHANOL BLOOD < 10 mg/dL
[2020-01-20 00:27] LABS: *AMPHETAMINES SCREEN URINE NEGATIVE (NEGATIVE); *BARBITURATES SCREEN URINE NEGATIVE (NEGATIVE); *BENZODIAZEPINES SCREEN URINE PRESUMTIVE POSITIVE (NEGATIVE); *COCAINE SCREEN URINE NEGATIVE (NEGATIVE); METHADONE URINE SCREEN NEGATIVE (NEGATIVE); OPIATES URINE SCREEN NEGATIVE (NEGATIVE)
[2020-01-20 00:29] LABS: CANNABINOID URINE SCREEN NEGATIVE (NEGATIVE); PHENCYCLIDINE URINE SCREEN NEGATIVE (NEGATIVE)
[2020-01-20 11:46] VITALS: BP 135/70
== END 2020-01-20 11:48 | disposition home or self-care (01) ==
LOC: ER 18:13
DX: F32.9 Major depressive disorder, single episode, unspecified (principal); R45.851 Suicidal ideations; R74.0 Nonspecific elevation of levels of transaminase and lactic acid dehydrogenase [LDH]; E66.9 Obesity, unspecified; Z68.27 Body mass index [BMI] 27.0-27.9, adult
CPT/HCPCS: 36415; 76705; 80053; 80305; 80307; 80320; 80329; 81003; 82248; 83690; 85025; 93005; 96361; 96374; 99285; J1885; J7030; G0480

== ENCOUNTER 2020-01-24 15:01 | Emergency (ER) | payer OTHER ==
[~2020-01-24] VITALS: Ht 167.6 cm; Wt 73.0 kg
[2020-01-24] MEDS ORDERED: MAGNESIUM/ALUMINUM HYDROXIDE/SIMETHICONE 30ML UDC PO STA (16:11)
[2020-01-24] MEDS ORDERED: VISCOUS LIDOCAINE 2% 15 ML UDC PO STA (16:11)
[2020-01-24] MEDS ORDERED: FAMOTIDINE 20MG/2ML VIAL IV STA (16:11)
[2020-01-24 17:15] LABS: CLARITY URINE CLEAR (CLEAR); COLOR URINE DK YELLOW (YELLOW); KETONES URINE NEGATIVE (NEGATIVE); LEUKOCYTE ESTERASE URINE TRACE (NEGATIVE); NITRITE URINE NEGATIVE (NEGATIVE); OCCULT BLOOD URINE NEGATIVE (NEGATIVE); PROTEIN URINE TRACE (NEGATIVE); SPECIFIC GRAVITY URINE 1.025 (1.005-1.030)
[2020-01-24 17:17] LABS: BASOPHILS % 0.5 % (0.0-2.0); EOSINOPHILS % 1.5 % (0.0-5.0); HEMATOCRIT. 50.7 % (42.0-52.0); HEMOGLOBIN. 17.6 g/dL (14.0-18.0); LYMPHOCYTES % 26.6 % (20.0-50.0); MEAN CORPUSCULAR HEMOGLOBIN 33.4 pg (28.0-32.0); MEAN CORPUSCULAR VOLUME 96.4 fL (80.0-94.0); MEAN PLATELET VOLUME 8.2 fl (7.4-10.4); MONOCYTES % 9.9 % (2.0-8.0); NEUTROPHILS % 61.5 % (40.0-76.0); PLATELET 248 x1000/uL (130-400); RED BLOOD CELL COUNT 5.26 mill/uL (4.7-6.1); RED CELL DISTRIBUTION WIDTH 13.3 % (11.6-14.6)
[2020-01-24 17:23] LABS: CHLORIDE 105 mEq/L (98-107); PROTHROMBIN TIME 10.4 sec (9.6-11.0)
[2020-01-24 17:28] LABS: ETHANOL BLOOD < 10 mg/dL
[2020-01-24 17:33] LABS: *AMPHETAMINES SCREEN URINE NEGATIVE (NEGATIVE); CANNABINOID URINE SCREEN NEGATIVE (NEGATIVE); METHADONE URINE SCREEN NEGATIVE (NEGATIVE); OPIATES URINE SCREEN NEGATIVE (NEGATIVE); PHENCYCLIDINE URINE SCREEN NEGATIVE (NEGATIVE)
[2020-01-24 17:34] LABS: *BARBITURATES SCREEN URINE NEGATIVE (NEGATIVE); *BENZODIAZEPINES SCREEN URINE PRESUMTIVE POSITIVE (NEGATIVE); *COCAINE SCREEN URINE NEGATIVE (NEGATIVE)
[2020-01-24] MEDS ORDERED: SODIUM CHLORIDE 0.9% 1,000 ML IV ONE (19:00)
[2020-01-24 21:30] VITALS: BP 116/69
== END 2020-01-24 22:47 | disposition home or self-care (01) ==
LOC: ER 15:01
DX: R21 Rash and other nonspecific skin eruption (principal); E10.11 Type 1 diabetes mellitus with ketoacidosis with coma; R11.2 Nausea with vomiting, unspecified; F31.9 Bipolar disorder, unspecified; F20.9 Schizophrenia, unspecified; F17.290 Nicotine dependence, other tobacco product, uncomplicated; Z79.899 Other long term (current) drug therapy
CPT/HCPCS: 36415; 71045; 80053; 80305; 80307; 80320; 80329; 81003; 83605; 83690; 84484; 85025; 85610; 93005; 96361; 96374; 99285; J3490; J7030; G0480

== ENCOUNTER 2020-01-27 17:38 | Inpatient (IN) | payer MEDICAID, OTHER ==
[~2020-01-27] VITALS: Ht 175.3 cm; Wt 82.6 kg
[2020-01-27 18:45] LABS: CLARITY URINE CLEAR (CLEAR); COLOR URINE DARK YELLOW (YELLOW); KETONES URINE NEGATIVE (NEGATIVE); LEUKOCYTE ESTERASE URINE NEGATIVE (NEGATIVE); NITRITE URINE NEGATIVE (NEGATIVE); OCCULT BLOOD URINE 2+ (NEGATIVE); PROTEIN URINE NEGATIVE (NEGATIVE); SPECIFIC GRAVITY URINE 1.034 (1.005-1.030)
[2020-01-27] MEDS ORDERED: ONDANSETRON HCL 4MG/2ML INJ IV STA (18:49)
[2020-01-27] MEDS ORDERED: SODIUM CHLORIDE 0.9% 1,000 ML IV ONE (18:49)
[2020-01-27 19:02] LABS: *AMPHETAMINES SCREEN URINE NEGATIVE (NEGATIVE); *BARBITURATES SCREEN URINE NEGATIVE (NEGATIVE); *BENZODIAZEPINES SCREEN URINE PRESUMTIVE POSITIVE (NEGATIVE); *COCAINE SCREEN URINE NEGATIVE (NEGATIVE)
[2020-01-27 19:03] LABS: CANNABINOID URINE SCREEN NEGATIVE (NEGATIVE); METHADONE URINE SCREEN NEGATIVE (NEGATIVE); OPIATES URINE SCREEN NEGATIVE (NEGATIVE); PHENCYCLIDINE URINE SCREEN NEGATIVE (NEGATIVE)
[2020-01-27 19:06] LABS: BASOPHILS % 0.6 % (0.0-2.0); HEMATOCRIT. 44.7 % (42.0-52.0); HEMOGLOBIN. 15.4 g/dL (14.0-18.0); LYMPHOCYTES % 32.2 % (20.0-50.0); MEAN CORPUSCULAR HEMOGLOBIN 33.1 pg (28.0-32.0); MEAN CORPUSCULAR VOLUME 96.1 fL (80.0-94.0); MONOCYTES % 12.5 % (2.0-8.0); NEUTROPHILS % 51.7 % (40.0-76.0); PLATELET 236 x1000/uL (130-400); RED BLOOD CELL COUNT 4.65 mill/uL (4.7-6.1)
[2020-01-27 19:11] LABS: CHLORIDE 110 mEq/L (98-107)
[2020-01-27 19:15] LABS: ETHANOL BLOOD < 10 mg/dL
[2020-01-27 19:19] LABS: CREATINE KINASE 162 IU/L (39-308)
[2020-01-27] MEDS ORDERED: ACETAMINOPHEN 325MG TABLET PO STA (20:10)
[2020-01-27] MEDS ORDERED: CEFTRIAXONE 1 G PREMIX 50 ML IV ONE (20:15)
[2020-01-27] MEDS ORDERED: ALBUTEROL 6.7GM HFA INHALER ORI ONE (20:15)
[2020-01-27] MEDS ORDERED: AZITHROMYCIN 500 MG in DEXT 5% WATER 250 ML IV ONE (20:15)
[2020-01-27] MEDS ORDERED: KETOROLAC 30MG/ML VIAL IV ONE (20:15)
[2020-01-27] MEDS ORDERED: AZITHROMYCIN 500 MG in DEXT 5% WATER 250 ML IV NR (20:30)
[2020-01-27] MEDS ORDERED: MORPHINE SULFATE 2 MG/ML CPJ (NOT FOR IM USE) IV ONE (21:15)
[2020-01-28] MEDS ORDERED: MORPHINE SULFATE 2 MG/ML CPJ (NOT FOR IM USE) IV PRN (01:45)
[2020-01-28] MEDS ORDERED: HYDROCODONE/ACETAMINOPHEN 5/325MG TABLET PO PRN (10:30)
[2020-01-28] MEDS ORDERED: ACETAMINOPHEN 325MG TABLET PO PRN (10:30)
[2020-01-28] MEDS ORDERED: ONDANSETRON HCL 4MG/2ML INJ IV PRN (10:30)
[2020-01-28] MEDS: ENOXAPARIN 40MG/0.4ML SYR SUBCUT SCH (11:48)
[2020-01-28] MEDS: FAMOTIDINE 20MG TABLET PO SCH (22:00)
[2020-01-28] MEDS: CEFTRIAXONE 1,000 MG in DEXTROSE 5% WATER 50 ML IV SCH (22:00)
[2020-01-29] MEDS: ENOXAPARIN 40MG/0.4ML SYR SUBCUT SCH (08:00)
[2020-01-29 12:00] VITALS: BP 115/72
[2020-01-29 12:16] VITALS: BP 115/72
[2020-01-29] MEDS ORDERED: QUET200T MT (12:30)
[2020-01-29] MEDS: DOCUSATE SODIUM 250MG CAPSULE PO SCH (13:30)
[2020-01-29 16:00] VITALS: BP 99/68
[2020-01-29 20:00] VITALS: BP 100/65
[2020-01-29] MEDS: QUETIAPINE FUMARATE 50MG TABLET PO SCH (20:43)
[2020-01-29] MEDS: CEFTRIAXONE 1,000 MG in DEXTROSE 5% WATER 50 ML IV SCH (20:43)
[2020-01-29] MEDS: FAMOTIDINE 20MG TABLET PO SCH (20:43)
[2020-01-29] MEDS: AZITHROMYCIN 250 MG TABLET PO SCH (20:45)
[2020-01-30] VITALS: BP 107/76
[2020-01-30 04:00] VITALS: BP 96/68
[2020-01-30 08:00] VITALS: BP 110/70
[2020-01-30] MEDS: ENOXAPARIN 40MG/0.4ML SYR SUBCUT SCH (08:01)
[2020-01-30] MEDS: DOCUSATE SODIUM 250MG CAPSULE PO SCH (09:00)
[2020-01-30 12:00] VITALS: BP 90/64
[2020-01-30 16:00] VITALS: BP 105/72
[2020-01-30 20:00] VITALS: BP 95/66
[2020-01-30] MEDS: CEFTRIAXONE 1,000 MG in DEXTROSE 5% WATER 50 ML IV SCH (20:05)
[2020-01-30] MEDS: AZITHROMYCIN 250 MG TABLET PO SCH (20:06)
[2020-01-30] MEDS: FAMOTIDINE 20MG TABLET PO SCH (20:06)
[2020-01-30] MEDS: QUETIAPINE FUMARATE 50MG TABLET PO SCH (20:06)
[2020-01-31] VITALS: BP 93/64
[2020-01-31 04:00] VITALS: BP 106/77
[2020-01-31 08:00] VITALS: BP 97/68
[2020-01-31] MEDS: DOCUSATE SODIUM 250MG CAPSULE PO SCH (09:00)
[2020-01-31] MEDS: ENOXAPARIN 40MG/0.4ML SYR SUBCUT SCH (09:00)
[2020-01-31 12:00] VITALS: BP 109/74
[2020-01-31 16:00] VITALS: BP 98/68
[2020-01-31 20:00] VITALS: BP 113/79
[2020-01-31] MEDS: CEFTRIAXONE 1,000 MG in DEXTROSE 5% WATER 50 ML IV SCH (20:23)
[2020-01-31] MEDS: AZITHROMYCIN 250 MG TABLET PO SCH (20:23)
[2020-01-31] MEDS: FAMOTIDINE 20MG TABLET PO SCH (20:23)
[2020-01-31] MEDS: QUETIAPINE FUMARATE 50MG TABLET PO SCH (20:23)
[2020-02-01] MEDS: DOCUSATE SODIUM 250MG CAPSULE PO SCH (08:54)
[2020-02-01] MEDS: ENOXAPARIN 40MG/0.4ML SYR SUBCUT SCH (08:54)
[2020-02-01 09:03] VITALS: BP 114/69
[2020-02-01 11:59] VITALS: BP 101/75
[2020-02-01 16:47] VITALS: BP 105/68
[2020-02-01 20:27] VITALS: BP 111/71
[2020-02-01] MEDS: FAMOTIDINE 20MG TABLET PO SCH (20:34)
[2020-02-01] MEDS: QUETIAPINE FUMARATE 50MG TABLET PO SCH (20:34)
[2020-02-01] MEDS: AZITHROMYCIN 250 MG TABLET PO SCH (20:34)
[2020-02-02 07:58] VITALS: BP 100/62
[2020-02-02] MEDS: DOCUSATE SODIUM 250MG CAPSULE PO SCH (09:00)
[2020-02-02] MEDS: ENOXAPARIN 40MG/0.4ML SYR SUBCUT SCH (09:00)
[2020-02-02 12:05] VITALS: BP 114/74
[2020-02-02 12:08] VITALS: BP 114/74
== END 2020-02-02 13:00 | disposition home or self-care (01) | DRG 139 ==
LOC: ER 17:38 → MICUSO 21:37 → 6WST 01-29 11:06
PROVIDERS: ADMIT Internal Medicine; ATTEND Internal Medicine
DX: J18.9 Pneumonia, unspecified organism (principal); E87.8 Other disorders of electrolyte and fluid balance, not elsewhere classified; F17.210 Nicotine dependence, cigarettes, uncomplicated; F31.9 Bipolar disorder, unspecified; R45.851 Suicidal ideations; Z20.828 Contact with and (suspected) exposure to other viral communicable diseases; R74.0 Nonspecific elevation of levels of transaminase and lactic acid dehydrogenase [LDH]; Z79.899 Other long term (current) drug therapy
CPT/HCPCS: 36415; 71045; 76700; 80053; 80305; 80307; 80320; 80329; 81003; 82550; 83605; 83880; 84145; 85025; 87635; 93005; 99285; J0456; J0696; J1650; J1885; J2270; J2405; J7030; J7060; G0480

== ENCOUNTER 2020-02-07 11:39 | Inpatient (IN) | payer MEDICAID, OTHER ==
[~2020-02-07] VITALS: Ht 175.3 cm; Wt 83.9 kg
[~2020-02-07 11:39] MED LIST changes: -CITA20TA75; -PANT40TA4; -QUET100T; +QUET200T MT; -QUET300T2 PO; -RANI25TA
[2020-02-07] MEDS ORDERED: FAMOTIDINE 20MG/2ML VIAL IV STA (12:13)
[2020-02-07] MEDS ORDERED: MORPHINE SULFATE 4 MG/ML CPJ (NOT FOR IM USE) IV STA (12:13)
[2020-02-07] MEDS ORDERED: SODIUM CHLORIDE 0.9% 1,000 ML IV ONE (12:13)
[2020-02-07] MEDS ORDERED: KETOROLAC 30MG/ML VIAL IV STA (12:13)
[2020-02-07 12:35] LABS: BASOPHILS % 0.8 % (0.0-2.0); CLARITY URINE CLEAR (CLEAR); COLOR URINE DK YELLOW (YELLOW); EOSINOPHILS % 4.1 % (0.0-5.0); HEMATOCRIT. 44.6 % (42.0-52.0); HEMOGLOBIN. 15.6 g/dL (14.0-18.0); KETONES URINE NEGATIVE (NEGATIVE); LEUKOCYTE ESTERASE URINE 1+ (NEGATIVE); LYMPHOCYTES % 33.1 % (20.0-50.0); MEAN CORPUSCULAR HEMOGLOBIN 33.5 pg (28.0-32.0); MEAN CORPUSCULAR VOLUME 95.8 fL (80.0-94.0); MEAN PLATELET VOLUME 8.1 fl (7.4-10.4); MONOCYTES % 11.6 % (2.0-8.0); NEUTROPHILS % 50.4 % (40.0-76.0); NITRITE URINE NEGATIVE (NEGATIVE); OCCULT BLOOD URINE 2+ (NEGATIVE); PH URINE 5.5 (4.5-8.0); PLATELET 222 x1000/uL (130-400); PROTEIN URINE NEGATIVE (NEGATIVE); RED BLOOD CELL COUNT 4.66 mill/uL (4.7-6.1); RED CELL DISTRIBUTION WIDTH 12.9 % (11.6-14.6); SPECIFIC GRAVITY URINE 1.031 (1.005-1.030)
[2020-02-07 12:41] LABS: CHLORIDE 105 mEq/L (98-107)
[2020-02-07 13:01] LABS: INR 0.9
[2020-02-07] MEDS ORDERED: IOHEXOL-300 100 ML BOTTLE ONE (13:59)
[2020-02-07] MEDS ORDERED: CEFTRIAXONE 1 G PREMIX 50 ML IV ONE (14:45)
[2020-02-07] MEDS ORDERED: MORPHINE SULFATE 4 MG/ML CPJ (NOT FOR IM USE) IV ONE (16:15)
[2020-02-07] MEDS ORDERED: LORAZEPAM 2MG/ML CPJ IV PRN (17:45)
[2020-02-07] MEDS ORDERED: CLONIDINE 0.1MG TABLET PO PRN (17:45)
[2020-02-07] MEDS ORDERED: MORPHINE SULFATE 2 MG/ML CPJ (NOT FOR IM USE) IV PRN (17:45)
[2020-02-07] MEDS ORDERED: DOCUSATE SODIUM 100MG CAPSULE PO PRN (17:45)
[2020-02-07] MEDS ORDERED: MAGNESIUM/ALUMINUM HYDROXIDE/SIMETHICONE 30ML UDC PO PRN (17:45)
[2020-02-07] MEDS ORDERED: MVI, ADULT NO.1 10 ML, FOLIC ACID 1 MG, THIAMINE HCL 100 MG in SODIUM CHLORIDE 0.9% 1,0... IV ONE ×4 (18:30)
[2020-02-07] MEDS: ENOXAPARIN 40MG/0.4ML SYR SUBCUT SCH (19:06)
[2020-02-07] MEDS: QUETIAPINE FUMARATE 50MG TABLET PO SCH (21:06)
[2020-02-07 22:05] VITALS: BP 96/56
[2020-02-07] MEDS ORDERED: QUET100T33 PO (23:22)
[2020-02-07] MEDS ORDERED: DIVA500T3 MT (23:27)
[2020-02-07] MEDS ORDERED: QUET200T MT (23:27)
[2020-02-07] MEDS ORDERED: ESCI10TA MT (23:27)
[2020-02-08 07:33] LABS: BASOPHILS % 0.6 % (0.0-2.0); EOSINOPHILS % 6.5 % (0.0-5.0); HEMATOCRIT. 41.2 % (42.0-52.0); HEMOGLOBIN. 14.3 g/dL (14.0-18.0); LYMPHOCYTES % 40.7 % (20.0-50.0); MEAN CORPUSCULAR HEMOGLOBIN 33.2 pg (28.0-32.0); MEAN CORPUSCULAR VOLUME 95.7 fL (80.0-94.0); MEAN PLATELET VOLUME 7.9 fl (7.4-10.4); MONOCYTES % 11.5 % (2.0-8.0); NEUTROPHILS % 40.7 % (40.0-76.0); PLATELET 192 x1000/uL (130-400); RED BLOOD CELL COUNT 4.31 mill/uL (4.7-6.1); RED CELL DISTRIBUTION WIDTH 12.9 % (11.6-14.6)
[2020-02-08 08:00] VITALS: BP 97/66
[2020-02-08 08:30] LABS: CHLORIDE 110 mEq/L (98-107)
[2020-02-08 08:37] LABS: AMYLASE 59 IU/L (25-115)
[2020-02-08 08:41] LABS: PHOSPHORUS 2.5 mg/dL (2.5-4.9)
[2020-02-08] MEDS: PANTOPRAZOLE SODIUM 40 MG/VIAL IV SCH (09:00)
[2020-02-08 12:00] VITALS: BP 116/72
[2020-02-08 16:20] VITALS: BP 151/106
[2020-02-08] MEDS: ENOXAPARIN 40MG/0.4ML SYR SUBCUT SCH (17:34)
[2020-02-08 20:00] VITALS: BP 113/80
[2020-02-08] MEDS: QUETIAPINE FUMARATE 50MG TABLET PO SCH (21:09)
[2020-02-09 04:00] VITALS: BP 102/74
[2020-02-09 08:00] VITALS: BP 109/70
[2020-02-09] MEDS: PANTOPRAZOLE SODIUM 40 MG/VIAL IV SCH (08:32)
[2020-02-09 10:44] LABS: BASOPHILS % 0.5 % (0.0-2.0); EOSINOPHILS % 4.6 % (0.0-5.0); HEMATOCRIT. 43.6 % (42.0-52.0); HEMOGLOBIN. 14.9 g/dL (14.0-18.0); LYMPHOCYTES % 33.5 % (20.0-50.0); MEAN CORPUSCULAR HEMOGLOBIN 32.9 pg (28.0-32.0); MEAN CORPUSCULAR VOLUME 96.3 fL (80.0-94.0); MONOCYTES % 8.6 % (2.0-8.0); NEUTROPHILS % 52.8 % (40.0-76.0); PLATELET 193 x1000/uL (130-400); RED BLOOD CELL COUNT 4.53 mill/uL (4.7-6.1); RED CELL DISTRIBUTION WIDTH 12.7 % (11.6-14.6)
[2020-02-09 11:44] LABS: CHLORIDE 108 mEq/L (98-107)
[2020-02-09 12:00] VITALS: BP 118/75
[2020-02-09 16:00] VITALS: BP 124/77
[2020-02-09] MEDS: ENOXAPARIN 40MG/0.4ML SYR SUBCUT SCH (17:36)
[2020-02-09 20:00] VITALS: BP 101/76
[2020-02-09] MEDS: QUETIAPINE FUMARATE 50MG TABLET PO SCH (20:23)
[2020-02-10 08:15] VITALS: BP 109/66
== END 2020-02-10 09:03 | disposition home or self-care (01) | DRG 282 ==
LOC: ER 11:48 → 6WST 16:03 → ENRESERV 20:45 → 6EST 02-08 07:00
PROVIDERS: ADMIT Internal Medicine; ATTEND Internal Medicine
DX: K85.90 Acute pancreatitis without necrosis or infection, unspecified (principal); K57.90 Diverticulosis of intestine, part unspecified, without perforation or abscess without bleeding; F31.9 Bipolar disorder, unspecified; K76.0 Fatty (change of) liver, not elsewhere classified; N28.1 Cyst of kidney, acquired; R45.851 Suicidal ideations; F17.200 Nicotine dependence, unspecified, uncomplicated; Z20.828 Contact with and (suspected) exposure to other viral communicable diseases; R74.0 Nonspecific elevation of levels of transaminase and lactic acid dehydrogenase [LDH]; Z59.0 Homelessness; Z79.899 Other long term (current) drug therapy; N39.0 Urinary tract infection, site not specified
CPT/HCPCS: 36415; 71045; 74177; 76705; 80048; 80053; 80076; 81003; 82150; 83735; 84100; 84484; 85025; 93005; 93970; 96374; 99285; C9113; J0696; J1650; J1885; J2270; J3411; J3490; J7030; Q9967

== ENCOUNTER 2020-02-18 10:28 | Emergency (ER) | payer MEDICAID ==
[~2020-02-18] VITALS: Ht 175.3 cm; Wt 84.0 kg
[~2020-02-18 10:28] MED LIST changes: +DIVA500T3 MT; +ESCI10TA MT; +QUET100T33 PO
[2020-02-18] MEDS ORDERED: MORPHINE SULFATE 4 MG/ML CPJ (NOT FOR IM USE) IV STA (10:50)
[2020-02-18] MEDS ORDERED: ONDANSETRON HCL 4MG/2ML INJ IV STA (10:50)
[2020-02-18 11:15] LABS: BASOPHILS % 0.9 % (0.0-2.0); EOSINOPHILS % 3.2 % (0.0-5.0); HEMATOCRIT. 41.5 % (42.0-52.0); HEMOGLOBIN. 14.7 g/dL (14.0-18.0); MEAN CORPUSCULAR HEMOGLOBIN 34.1 pg (28.0-32.0); MEAN CORPUSCULAR VOLUME 95.9 fL (80.0-94.0); MEAN PLATELET VOLUME 7.8 fl (7.4-10.4); MONOCYTES % 9.8 % (2.0-8.0); NEUTROPHILS % 54.1 % (40.0-76.0); PLATELET 208 x1000/uL (130-400); RED BLOOD CELL COUNT 4.33 mill/uL (4.7-6.1); RED CELL DISTRIBUTION WIDTH 13.1 % (11.6-14.6)
[2020-02-18 11:20] LABS: CHLORIDE 107 mEq/L (98-107)
[2020-02-18 11:24] LABS: PROTHROMBIN TIME 10.1 sec (9.6-11.0)
[2020-02-18 12:06] VITALS: BP 113/72
== END 2020-02-18 13:34 | disposition home or self-care (01) ==
LOC: ER 10:28
DX: R10.84 Generalized abdominal pain (principal); R11.2 Nausea with vomiting, unspecified; R10.9 Unspecified abdominal pain; R19.7 Diarrhea, unspecified; F17.200 Nicotine dependence, unspecified, uncomplicated; Z79.899 Other long term (current) drug therapy
CPT/HCPCS: 36415; 74176; 80053; 83690; 85025; 85610; 93005; 96374; 96375; 99285; J2270; J2405

== ENCOUNTER 2020-02-20 01:06 | Emergency (ER) | payer MEDICAID ==
[~2020-02-20] VITALS: Ht 175.3 cm; Wt 88.0 kg
[2020-02-20] MEDS ORDERED: LOPERAMIDE HCL 2MG CAPSULE PO ONE (01:30)
[2020-02-20] MEDS ORDERED: KETOROLAC 60MG/2ML VIAL IM ONE (01:30)
[2020-02-20 03:40] VITALS: BP 114/75
== END 2020-02-20 03:53 | disposition home or self-care (01) ==
LOC: ER 01:06
DX: R19.7 Diarrhea, unspecified (principal); R10.13 Epigastric pain; F31.9 Bipolar disorder, unspecified
CPT/HCPCS: 93005; 96372; 99283; J1885

== ENCOUNTER 2020-05-14 10:53 | Emergency (ER) | payer MEDICAID, OTHER ==
[~2020-05-14] VITALS: Ht 175.3 cm; Wt 84.0 kg
[2020-05-14] MEDS ORDERED: KETOROLAC 30MG/ML VIAL IV STA (11:34)
[2020-05-14] MEDS ORDERED: ONDANSETRON HCL 4MG/2ML INJ IV STA ×2 (11:34→14:10)
[2020-05-14] MEDS ORDERED: SODIUM CHLORIDE 0.9% 1,000 ML IV ONE (11:45)
[2020-05-14 12:02] LABS: BASOPHILS % 0.5 % (0.0-2.0); EOSINOPHILS % 0.6 % (0.0-5.0); HEMATOCRIT. 50.9 % (42.0-52.0); HEMOGLOBIN. 17.4 g/dL (14.0-18.0); LYMPHOCYTES % 18.6 % (20.0-50.0); MEAN CORPUSCULAR HEMOGLOBIN 32.8 pg (28.0-32.0); MEAN CORPUSCULAR VOLUME 96.1 fL (80.0-94.0); MONOCYTES % 9.6 % (2.0-8.0); NEUTROPHILS % 70.7 % (40.0-76.0); PLATELET 282 x1000/uL (130-400); RED BLOOD CELL COUNT 5.29 mill/uL (4.7-6.1); RED CELL DISTRIBUTION WIDTH 13.4 % (11.6-14.6)
[2020-05-14 12:09] LABS: CHLORIDE 102 mEq/L (98-107)
[2020-05-14 12:14] LABS: ETHANOL BLOOD < 10 mg/dL
[2020-05-14 14:00] VITALS: BP 128/78
[2020-05-14] MEDS ORDERED: MORPHINE SULFATE 4 MG/ML CPJ (NOT FOR IM USE) IV STA (14:10)
[2020-05-14 15:02] LABS: CLARITY URINE TURBID (CLEAR); COLOR URINE RED (YELLOW); KETONES URINE TRACE (NEGATIVE); LEUKOCYTE ESTERASE URINE 1+ (NEGATIVE); NITRITE URINE POSITIVE (NEGATIVE); OCCULT BLOOD URINE TRACE (NEGATIVE); PROTEIN URINE TRACE (NEGATIVE)
[2020-05-14 15:57] LABS: *AMPHETAMINES SCREEN URINE NEGATIVE (NEGATIVE); *BARBITURATES SCREEN URINE NEGATIVE (NEGATIVE); *BENZODIAZEPINES SCREEN URINE NEGATIVE (NEGATIVE)
[2020-05-14 15:58] LABS: *COCAINE SCREEN URINE NEGATIVE (NEGATIVE); CANNABINOID URINE SCREEN NEGATIVE (NEGATIVE); METHADONE URINE SCREEN NEGATIVE (NEGATIVE); OPIATES URINE SCREEN NEGATIVE (NEGATIVE); PHENCYCLIDINE URINE SCREEN NEGATIVE (NEGATIVE)
== END 2020-05-14 15:00 | disposition home or self-care (01) ==
LOC: ER 11:24
DX: R10.33 Periumbilical pain (principal); K86.1 Other chronic pancreatitis; F20.9 Schizophrenia, unspecified; F31.9 Bipolar disorder, unspecified; F17.210 Nicotine dependence, cigarettes, uncomplicated
CPT/HCPCS: 36415; 74176; 80053; 80305; 80320; 81003; 83690; 85025; 93005; 96361; 96374; 96375; 96376; 99285; J1885; J2270; J2405; J7030; G0480